=== PATIENT | female | born 1975 | race Caucasian/White ===

== ENCOUNTER 2016-10-15 11:14 | Emergency (ER) | payer OTHER ==
[~2016-10-15] VITALS: Ht 170.2 cm; Wt 72.6 kg
[~2016-10-15 11:14] MED LIST: ANTIVERT 25MG #1 PAC PO; TORADOL10 MG PO; ZOFRAN4 M1 PO
--- NOTE | 2016-10-15 12:28 | ED GI/GU/ABDOMINAL COMPLAINT ---
History of Present Illness General Chief Complaint: Low Back Pain/Injury Stated Complaint: LBP Source: patient Exam Limitations: no limitations Vital Signs & Intake/Output Vital Signs & Intake/Output Vital Signs Date Time Temp Pulse Resp B/P B/P Pulse O2 O2 Flow FiO2 Mean Ox Delivery Rate 10/15 1641 98.0 85 16 105/57 99 Room Air 10/15 1443 97.2 70 20 108/57 96 Room Air 10/15 1354 97.0 74 20 110/70 98 Room Air 10/15 1226 97.0 100 20 137/92 96 Room Air 10/15 1203 Room Air 10/15 1132 96.6 80 15 108/72 96 Room Air Room Air ED Intake and Output 10/16 0000 10/15 1200 Intake Total 1000 Output Total Balance 1000 Intake, IV 1000 Patient 160 lb Weight Weight Reported by Patient Measurement Method Allergies Coded Allergies: Iodinated Contrast Media - Oral and (Intermediate, [facility] 10/15/16) divalproex sodium (From DEPAKOTE) (Intermediate, [facility] 10/15/16) Reconcile Medications Ferrous Sulfate 325 MG (65 MG IRON) TABLET 1 TAB PO BID SUPPLEMENT (Reported) Hydrocodone/Acetaminophen ([place] 5-325 Tablet) 5 MG-325 MG TABLET 1-2 TAB PO Q6P PRN PAIN Ketorolac Tromethamine 10 MG TABLET 1 TAB PO Q6P PRN pain patient was treated with IV ketorolac in the emergency department Levothyroxine Sodium 25 MCG TABLET 0.5 TAB PO DAILY AC THYROID (Reported) Onabotulinumtoxina (Botox) 200 UNIT VIAL 1 INJ SC HEADACHE (Reported) Topiramate 25 MG TABLET 3 TAB PO DAILY UNKNOWN (Reported) Topiramate 25 MG TABLET UNKNOWN (Reported) Venlafaxine HCl (Venlafaxine HCl ER) 150 MG CAP.ER.24H 1 CAP PO DAILY MENTAL HEALTH (Reported) Triage Note: 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 Triage Nurses Notes Reviewed? yes ? n Is pt currently ? No HPI: Patient presents for evaluation of a severe constant aching left flank pain that began about 2 hours ago while at work, sitting at her desk. Patient states the pain is the most excruciating pain she has ever experienced. She denies any prior episodes. The onset was gradual and there is no change with movement. The patient likewise denies fever, cold symptoms or dysuria (but had trouble initiating urination in the emergency department). Past History Travel History Traveled to [place] past 21 day No Medical History Any Pertinent Medical History? 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 No Review of Systems Review of Systems Constitutional: Reports: no symptoms. EENTM: Reports: no symptoms. Respiratory: Reports: no symptoms. Cardiovascular: Reports: no symptoms. GI: Reports: no symptoms. Genitourinary: Reports: no symptoms. Musculoskeletal: Reports: see HPI. Skin: Reports: no symptoms. Neurological/Psychological: Reports: no symptoms. Hematologic/Endocrine: Reports: no symptoms. Immunologic/Allergic: Reports: no symptoms. All Other Systems: Reviewed and Negative Physical Exam Physical Exam Gastrointestinal: normal bowel sounds (SEE ), SEE BELOW Comments: Gen.: Well-nourished, well-developed, no acute respiratory distress. Moderate distress secondary to flank pain. Head: Normocephalic, atraumatic. Eyes: Normal inspection bilaterally Ears: Normal inspection bilaterally Nose: Normal inspection Throat/mouth : Moist mucosa Neck: Supple, full range of motion, no goiter Heart: Regular rate and rhythm, no murmurs rubs or gallops Lungs: Clear to auscultation bilaterally with normal air entry Chest: Nontender Back: Normal range of motion, tenderness over the left flank Abdomen: Soft, left mid abdominal tenderness with brief voluntary guarding but no rebound, nondistended, normal bowel sounds Extremities: Normal range of motion grossly, equal radial pulses, no cyanosis clubbing or edema Neurologic: Cranial nerves grossly intact, speech is clear Skin: warm and dry Psychiatric: Calm, cooperative, no apparent delusions or hallucinations Core Measures ACS in differential dx? No Severe Sepsis Present: No Septic Shock Present: No Progress Differential Diagnosis: RENAL COLIC Plan of Care: Orders Procedure Date/time Status LIPASE 10/15 1226 Complete COMPREHENSIVE METABOLIC PANEL 10/15 1226 Complete CBC WITHOUT DIFFERENTIAL 10/15 1226 Complete URINE 10/15 1134 Complete URINALYSIS 10/15 1134 Complete Laboratory Tests 10/15/16 1317: Anion Gap 12, Estimated GFR > 60, BUN/Creatinine Ratio 14.4, Glucose 115 H, Calcium 9.6, Total Bilirubin 0.6, AST 32, ALT 34, Alkaline Phosphatase 42, Total Protein 7.7, Albumin 4.6, Globulin 3.1, Albumin/Globulin Ratio 1.5, Lipase 84, CBC w Diff MAN DIFF ORDERED, RBC 5.13, MCV 78.5 L, MCH 26.0 L, RDW 14.7 H, MPV 8.0, Gran % 88.8 H, Lymphocytes % 8.6 L, Monocytes % 2.4, Eosinophils % 0.1, Basophils % 0.1, Absolute Granulocytes 13.0 H, Segmented Neutrophils 91 H , Band Neutrophils 1, Absolute Lymphocytes 1.3, Lymphocytes 5 L, Monocytes 3, Absolute Monocytes 0.4, Absolute Eosinophils 0, Absolute Basophils 0, Platelet Estimate ADEQUATE, Hypochromic-Microcytic 1+, Microcytic Cells 1+, PUBS MCHC 33.2, Fld Total RBCs Counted 100 10/15/16 1200: Urinalysis LIGHT H, Urine Color YEL, Urine Clarity HAZY H, Urine pH 6.0, Ur Specific [place] 1.025, Urine Protein 30 H, Urine Ketones NEG, Urine Nitrite NEG, Urine Bilirubin NEG, Urine Urobilinogen 0.2, Ur Leukocyte Esterase NEG, Ur Microscopic SEDIMENT EXAMINED, Urine RBC PACKD H, Urine WBC 1-3 H, Ur Epithelial Cells FEW, Urine Bacteria MOD H, Urine Mucus RARE, Urine Hemoglobin LARGE H, Urine Glucose NEG, Urine Test NEGATIVE Diagnostic Imaging: Discussed w/RAD: CT Scan. Radiology Impression: PATIENT: ALEXI GOOD PRESENT AGE: 41 PATIENT ACCOUNT NO: [id number] : 74 LOCATION: [facility] ORDERING PHYSICIAN: JEFF BRO MD SERVICE DATE: 10/15/16 EXAM TYPE: CAT - CT ABD & PELVIS W/O IV CONTRAS EXAMINATION: CT ABDOMEN AND PELVIS WITHOUT CONTRAST CLINICAL INFORMATION: Left renal colic. COMPARISON: None TECHNIQUE: Multidetector volumetric imaging was performed from the superior aspect of the liver through the pubic symphysis. Sagittal and coronal reformatted images were obtained on the technologist's workstation. DLP: 322.04 mGy-cm FINDINGS: LUNG BASES: The visualized lung bases are unremarkable. Bilateral breast implants are present. LIVER, GALLBLADDER, AND BILIARY TREE: The liver is normal in size, shape, and attenuation. No focal hepatic lesion or biliary ductal dilatation is present. The gallbladder is unremarkable with no evidence of radiopaque gallstones, gallbladder wall thickening, or obvious pericholecystic inflammatory changes. PANCREAS: Unremarkable. SPLEEN: Unremarkable. ADRENAL GLANDS: Unremarkable. KIDNEYS AND URETERS: There is an obstructing left proximal ureteral calculus present that measures 3 mm in size. Ureteral pelvocaliectasis with some stranding is noted above this level. No intrarenal calculi are seen on the left. No calculi are present on the right. The right kidney appears normal. No renal masses are seen on either side. BLADDER: Unremarkable. GASTROINTESTINAL TRACT: The small and large bowel are unremarkable. The appendix is unremarkable. ABDOMINAL WALL: No significant hernia is appreciated. LYMPH NODES: Normal. VASCULAR: Unremarkable. PELVIC VISCERA: Normal anteverted uterus is present. Some calcification is noted in the lower uterine segment. No abnormal adnexal masses seen. No free fluid is present. OSSEOUS STRUCTURES: Unremarkable. IMPRESSION: Obstructing 3 mm proximal left ureteral stone. DICTATED BY: KRISTA BREAUX MD DATE/TIME DICTATED:10/15/161346 FISHING ACCESSORIES MAKER:NITESH DATE/ TIME TRANSCRIBED:10/15/161346 CONFIDENTIAL, DO NOT COPY WITHOUT APPROPRIATE AUTHORIZATION. <Electronically signed in Other Vendor System> SIGNED BY: KRISTA BREAUX MD 10/15/16 1402 Initial ED EKG: none Departure Departure Disposition: HOME OR SELF CARE Condition: Stable Clinical Impression Primary Impression: Renal colic on left side Referrals: NICA ROSE,BART Singer (PCP/Family) Additional Instructions: Ketorolac and [place] as prescribed for pain. Tried to strain your urine to have the stone analyzed. Follow-up with Dr. Sutherland tomorrow for reevaluation. Notify your primary care doctor of this emergency department visit and treatment plan. Return if any concerns or sudden worsening. Please note that there might be incidental findings in your evaluation that are unrelated to the current emergency department visit. Please notify your primary care doctor about this emergency department visit in order to obtain and review all of the testing performed so that these incidental findings can be monitored as needed. If you had an x-ray performed, please understand that some fractures may not be seen on the initial set of x-rays. If your symptoms persist you might need a repeat set of x-rays to check for such a fracture. If you had a laceration evaluated, please understand that foreign bodies such as glass or wood may not be visible to the naked eye or on plain x-rays. If the wound becomes red, swollen, increasingly more painful or if there is any drainage from the wound, please have it reevaluated by a physician for the possibility of a retained foreign body. Thank you for choosing the [facility] for your care. It was a pleasure to serve you today. Jeff Bro M.D. [facility] Departure Forms: Customer Survey General Discharge Information Prescriptions: Current Visit Scripts Hydrocodone/Acetaminophen ([place] 5-325 Tablet) 1-2 TAB PO Q6P PRN PAIN #20 TAB Ketorolac Tromethamine 1 TAB PO Q6P PRN pain #16 TAB patient was treated with IV ketorolac in the emergency department
[2016-10-15 13:25] LABS: ABSOLUTE EOSINOPHIL COUNT 0 /CUMM (0.0-0.7); ABSOLUTE MONOCYTE COUNT 0.4 /CUMM (0.10-0.60)
[2016-10-15 13:28] LABS: ABSOLUTE BASOPHIL COUNT 0 /CUMM (0.0-0.2); ABSOLUTE LYMPH COUNT 1.3 /CUMM (1.2-3.4); BASOPHIL % 0.1 % (0.0-2.0); EOSINOPHIL % 0.1 % (0-5); GRANULOCYTE % 88.8 % (42.2-75.2); HEMATOCRIT 40.3 % (37-47); MEAN CORPUSCULAR HGB CONC 33.2 G/DL (33.0-37.0); MEAN CORPUSCULAR VOLUME 78.5 FL (81.0-99.0); PLATELET COUNT 231 /CUMM (130-400); RBC DISTRIBUTION WIDTH 14.7 % (11.5-14.5); RED BLOOD CELL CT 5.13 /CUMM (4.20-5.40); WHITE BLOOD CELL COUNT 14.6 /CUMM (4.8-10.8)
--- NOTE | 2016-10-15 14:08 | CT SCAN REPORT ---
EXAMINATION: CT ABDOMEN AND PELVIS WITHOUT CONTRAST CLINICAL INFORMATION: Left renal colic. COMPARISON: None TECHNIQUE: Multidetector volumetric imaging was performed from the superior aspect of the liver through the pubic symphysis. Sagittal and coronal reformatted images were obtained on the technologist's workstation. DLP: 322.04 mGy-cm FINDINGS: LUNG BASES: The visualized lung bases are unremarkable. Bilateral breast implants are present. LIVER, GALLBLADDER, AND BILIARY TREE: The liver is normal in size, shape, and attenuation. No focal hepatic lesion or biliary ductal dilatation is present. The gallbladder is unremarkable with no evidence of radiopaque gallstones, gallbladder wall thickening, or obvious pericholecystic inflammatory changes. PANCREAS: Unremarkable. SPLEEN: Unremarkable. ADRENAL GLANDS: Unremarkable. KIDNEYS AND URETERS: There is an obstructing left proximal ureteral calculus present that measures 3 mm in size. Ureteral pelvocaliectasis with some stranding is noted above this level. No intrarenal calculi are seen on the left. No calculi are present on the right. The right kidney appears normal. No renal masses are seen on either side. BLADDER: Unremarkable. GASTROINTESTINAL TRACT: The small and large bowel are unremarkable. The appendix is unremarkable. ABDOMINAL WALL: No significant hernia is appreciated. LYMPH NODES: Normal. VASCULAR: Unremarkable. PELVIC VISCERA: Normal anteverted uterus is present. Some calcification is noted in the lower uterine segment. No abnormal adnexal masses seen. No free fluid is present. OSSEOUS STRUCTURES: Unremarkable. IMPRESSION: Obstructing 3 mm proximal left ureteral stone.
[2016-10-15] MEDS ORDERED: TOPIRAMATE25 M2 PO ×2 (14:34→14:35)
[2016-10-15] MEDS ORDERED: LEVOTHYROXINE25 MCG PO (14:35)
[2016-10-15] MEDS ORDERED: FERROUS SULFAT325 M3 PO (14:35)
[2016-10-15] MEDS ORDERED: VENLAFAXINE HC150 MG PO (14:35)
[2016-10-15] MEDS ORDERED: BOTOX200 UNIT SC (14:37)
[2016-10-15] MEDS ORDERED: NORCO 5-325 TA1 EACH PO (16:29)
[2016-10-15] MEDS ORDERED: KETOROLAC TROME10 M1 PO (16:29)
[2016-10-15 16:41] VITALS: BP 105/57
== END 2016-10-15 16:42 ==
LOC: ERH 11:14
PROVIDERS: Emergency Medicine
DX: N23 Unspecified renal colic (principal)
CPT/HCPCS: 74176; 81001; 81025; 96374; 96375; J1885; J2405

== ENCOUNTER 2016-10-21 17:27 | Emergency (ER) | payer OTHER ==
[~2016-10-21] VITALS: Ht 170.2 cm; Wt 72.6 kg
[~2016-10-21 17:27] MED LIST changes: +BOTOX200 UNIT SC; +FERROUS SULFAT325 M3 PO; +KETOROLAC TROME10 M1 PO; +LEVOTHYROXINE25 MCG PO; +NORCO 5-325 TA1 EACH PO; +TOPIRAMATE25 M2 PO; +VENLAFAXINE HC150 MG PO
--- NOTE | 2016-10-21 18:49 | ED GI/GU/ABDOMINAL COMPLAINT ---
History of Present Illness General Chief Complaint: Female Urogenital Problems Stated Complaint: VAGINAL PAIN,NAUSEA POST PASSING KIDNEY STONE Source: patient, family, old records Exam Limitations: no limitations Vital Signs & Intake/Output Vital Signs & Intake/Output Vital Signs Date Time Temp Pulse Resp B/P B/P Pulse O2 O2 Flow FiO2 Mean Ox Delivery Rate 10/21 2145 98.1 94 18 110/80 99 Room Air 10/21 1944 98.4 75 18 125/76 96 Room Air 10/21 1748 96.7 81 16 126/86 98 Room Air Allergies Coded Allergies: Iodinated Contrast- Oral and IV Dye (IODINATED CONTRAST MEDIA - ORAL AND) ( Intermediate, [facility] 10/15/16) divalproex sodium (From DEPAKOTE) ([facility], [facility] 10/15/16) Reconcile Medications Ferrous Sulfate 325 MG (65 MG IRON) TABLET 1 TAB PO BID SUPPLEMENT (Reported) Hydrocodone/Acetaminophen ([place] 5-325 Tablet) 5 MG-325 MG TABLET 1-2 TAB PO Q6P PRN PAIN Ketorolac Tromethamine 10 MG TABLET 1 TAB PO Q6P PRN pain patient was treated with IV ketorolac in the emergency department Ketorolac Tromethamine 10 MG TABLET 1 TAB PO Q6P PRN PAIN TAKE WITH FOOD Levothyroxine Sodium 25 MCG TABLET 0.5 TAB PO DAILY AC THYROID (Reported) Onabotulinumtoxina (Botox) 200 UNIT VIAL 1 INJ SC Q3M MIGRAINES (Reported) Ondansetron (Zofran Odt) 4 MG TAB.RAPDIS 1 TAB PO Q6 PRN NAUSEA Peg 3350/Na Sulf,Bicarb,Cl/KCl (Golytely Packet) 227.1-21.5 POWD.PACK 8 OZ PO [id number] PRN CONSTIPATION Promethazine HCl 25 MG TABLET 1 TAB PO Q6P PRN NAUSEA Topiramate 25 MG TABLET 3 TAB PO QAM MIGRAINES (Reported) Topiramate 25 MG TABLET 2 TAB PO DAILY MIGRAINES (Reported) Venlafaxine HCl (Venlafaxine HCl ER) 150 MG CAP.ER.24H 1 CAP PO DAILY MIGRAINES (Reported) Triage Note: PT STATES SHE WAS SEEN HERE WEDNESDAY FOR A KIDNEY STONE. PT STATES SHE PASSED IT WEDNESDAY MORNING. PT STATES WEDNESDAY EVENING SHE BEGAN TO HAVE NAUSEA AND SHE BEGAN TO HAVE PELVIC PAIN ON WEDNESDAY EVENING Triage Nurses Notes Reviewed? yes ? N Is pt currently ? No Onset: Abrupt Duration: day(s): (1) Timing: multiple episodes today Quality/Severity: moderate, sharpness, severe Severity Numbers: 10 Location: right lower quadrant, urethral Activities at Onset: after passing renal stone Associated Symptoms: nausea/vomiting HPI: 41 year old female presents with pain in her RLQ and in the urethra after passing kidney stone. She was seen here a few days previously for left ureteral stone and states that she then passed the stone. Since that time she has been having ureteral pain but then today developed RLQ pain. History of endometriosis and previous ovarian cyst rupture. Denies fever or chills. Positive nausea. Pain feels similar to that with ruptured ovarian cyst. Past History Travel History Traveled to [place] past 21 day No Medical History Any Pertinent Medical History? 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 No Review of Systems Review of Systems Constitutional: Denies: chills, fever. EENTM: Reports: no symptoms. Respiratory: Reports: no symptoms. Cardiovascular: Reports: no symptoms. GI: Reports: abdominal pain, nausea. Denies: diarrhea, vomiting. Genitourinary: Denies: discharge, dysuria, frequency. Musculoskeletal: Reports: no symptoms. Skin: Reports: no symptoms. Neurological/Psychological: Reports: no symptoms. Hematologic/Endocrine: Reports: polyuria. Denies: bruising, bleeding, polydipsia. Immunologic/Allergic: Denies: splenectomy. All Other Systems: Reviewed and Negative Physical Exam Physical Exam General Appearance: well developed/nourished, alert, awake, anxious, mild distress Head: atraumatic, normal appearance Eyes: Bilateral: normal appearance, PERRL, EOMI. Ears, Nose, Throat, Mouth: hearing grossly normal, moist mucous membrane Neck: normal inspection, supple, full range of motion Respiratory: normal breath sounds, chest non-tender, no respiratory distress Cardiovascular: regular rate/rhythm Peripheral Pulses: 2+ radial (R), 2+ radial (L) Gastrointestinal: normal bowel sounds, soft, tenderness (RLQ, OVER RIGHT INGUINAL CANAL) Extremities: normal range of motion Neurologic/Psych: no motor/sensory deficits, awake, alert, oriented x 3 Core Measures ACS in differential dx? No Severe Sepsis Present: No Septic Shock Present: No Progress Differential Diagnosis: appendicitis, hernia, ovarian cyst, ovarian torsion, UTI /pyelo, ENDOMETRIOSIS Plan of Care: Orders Procedure Date/time Status Add-on Test (ER Only) 10/22 1907 Active COMPREHENSIVE METABOLIC PANEL 10/21 1848 Complete CBC WITHOUT DIFFERENTIAL 10/21 1848 Complete URINE 10/21 1800 Complete URINALYSIS 10/21 174 Complete Current Medications Sig/Vandana Start time Last Medication Dose Stop Time Status Admin Hydromorphone HCl 1 MG ONCE ONE 10/21 2144 UNVr (Dilaudid) 10/21 2145 Laboratory Tests 10/21/161900: Anion Gap 12, Estimated GFR > 60, BUN/Creatinine Ratio 15.0, Glucose 96, Calcium 9.5, Total Bilirubin 0.2, AST 20, ALT 41, Alkaline Phosphatase 47, Total Protein 7.4, Albumin 4.4, Globulin 3.0, Albumin/Globulin Ratio 1.5, CBC w Diff NO MAN DIFF REQ, RBC 4.85, MCV 78.3 L, MCH 26.1 L, RDW 14.4, MPV 8.0, Gran % 70.0, Lymphocytes % 22.3, Monocytes % 5.3, Eosinophils % 2.1, Basophils % 0.3, Absolute Granulocytes 5.0, Absolute Lymphocytes 1.6, Absolute Monocytes 0.4, Absolute Eosinophils 0.1, Absolute Basophils 0, PUBS MCHC 33.3 10/21/16 1800: Urine Color YEL, Urine Clarity CLEAR, Urine pH 7.0, Ur Specific [place] 1.015, Urine Protein NEG, Urine Ketones NEG, Urine Nitrite NEG, Urine Bilirubin NEG, Urine Urobilinogen 0.2, Ur Leukocyte Esterase NEG, Ur Microscopic EXAM NOT REQUIRED, Urine Hemoglobin NEG, Urine Glucose NEG, Urine Test NEGATIVE TORADOL, ZOFRAN, FLUIDS, LABS ORDERED. NO RELIEF, IV MORPHINE ORDERED. U/S PENDING. IV DILAUDID ORDERED. U/S CONSISTENT WITH FIBROID AND LEFT OVARIAN CYST. WILL FOLLOW UP WITH OBGYN AND WITH SURGERY FOLLOW UP FOR POSSIBLITY O FFEMORAL HERNIA. (ARIAN ROSE,CRISTI) Diagnostic Imaging: Viewed by Me: Ultrasound. Discussed w/RAD: Ultrasound. Initial ED EKG: none Departure Departure Disposition: HOME OR SELF CARE Condition: Stable Clinical Impression Primary Impression: Ovarian cyst Secondary Impressions: Fibroid Referrals: NICA ROSE,BART Singer (PCP/Family) SABAS ROSE,DARIEN Jacques Additional Instructions: take motrin as needed for pain. take percocet for breakthrough pain and zofran for nausea. 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 Departure Forms: Customer Survey General Discharge Information Prescriptions: Current Visit Scripts Ondansetron (Zofran Odt) 1 TAB PO Q6 PRN NAUSEA #20 TAB Ketorolac Tromethamine 1 TAB PO Q6P PRN PAIN #20 TAB TAKE WITH FOOD
[2016-10-21 19:30] LABS: ABSOLUTE BASOPHIL COUNT 0 /CUMM (0.0-0.2); ABSOLUTE EOSINOPHIL COUNT 0.1 /CUMM (0.0-0.7); ABSOLUTE LYMPH COUNT 1.6 /CUMM (1.2-3.4); ABSOLUTE MONOCYTE COUNT 0.4 /CUMM (0.10-0.60); BASOPHIL % 0.3 % (0.0-2.0); EOSINOPHIL % 2.1 % (0-5); MEAN CORPUSCULAR HGB 26.1 PG (27.0-31.0); MEAN CORPUSCULAR HGB CONC 33.3 G/DL (33.0-37.0); MEAN CORPUSCULAR VOLUME 78.3 FL (81.0-99.0); PLATELET COUNT 266 /CUMM (130-400); RBC DISTRIBUTION WIDTH 14.4 % (11.5-14.5); RED BLOOD CELL CT 4.85 /CUMM (4.20-5.40)
[2016-10-21 19:39] LABS: WHITE BLOOD CELL COUNT 7.1 /CUMM (4.8-10.8)
--- NOTE | 2016-10-21 21:19 | ULTRASOUND REPORT ---
EXAM: Pelvic Ultrasound CLINICAL INDICATION: Right lower quadrant pain. Nausea. History of endometriosis with ruptured cyst. COMPARISON: CT abdomen pelvis 10/15/2016 and pelvic ultrasound 04/08/2011 TECHNIQUE: The pelvis was evaluated using transabdominal and transvaginal imaging. Color and spectral Doppler imaging was obtained of both ovaries. FINDINGS: The uterus measures 7.9 x 3.3 x 4.7 cm in longitudinal by AP by transverse dimension. The endometrial stripe measures 0.6 cm. Suspected 1.6 cm fundal fibroid. The cervix measures 3.5 cm in length. The left ovary measures approximately 4.0 x 2.5 x 3.2 cm. Within the left ovary is an approximately 1.8 x 1.6 x 1.7 cm complex hypoechoic structure containing internal echogenicities. The right ovary measures approximately 2.3 x 2.0 x 1.4 cm and is normal. Spectral analysis reveals normal arterial and venous waveforms in the bilateral ovaries. There are no abnormal adnexal masses. There is no free fluid in the pelvis. IMPRESSION: 1. Suspected 1.6 cm fundal fibroid. Endometrial stripe measures 6 mm in thickness. 2. 1.8 cm complex hypoechoic structure within the left ovary. Findings are nonspecific but most suggestive of a hemorrhagic cyst. Short-term interval follow-up is recommended to ensure resolution.
[2016-10-21] MEDS ORDERED: ZOFRAN ODT4 M1 PO (21:48)
[2016-10-21] MEDS ORDERED: PERCOCET 5-3251 EACH PO (21:48)
[2016-10-21] MEDS ORDERED: KETOROLAC TROME10 M1 PO (22:49)
[2016-10-21 22:53] VITALS: BP 110/82
== END 2016-10-21 22:53 ==
LOC: ERH 17:27
PROVIDERS: Emergency Medicine
DX: N83.202 Unspecified ovarian cyst, left side (principal); D21.9 Benign neoplasm of connective and other soft tissue, unspecified
CPT/HCPCS: 81003; 81025; 96361; 96374; 96375; J1885; J2405; J3101

== ENCOUNTER 2016-10-23 15:30 | Emergency (ER) | payer OTHER ==
[~2016-10-23] VITALS: Ht 170.2 cm; Wt 72.6 kg
[~2016-10-23 15:30] MED LIST changes: +PERCOCET 5-3251 EACH PO; +ZOFRAN ODT4 M1 PO
--- NOTE | 2016-10-23 16:57 | ED GI/GU/ABDOMINAL COMPLAINT ---
History of Present Illness General Chief Complaint: General Adult Stated Complaint: PT WAS HERE BEFORE FOR NAUSEA AND ADBDONAIL PAIN Source: patient, old records Exam Limitations: no limitations Vital Signs & Intake/Output Vital Signs & Intake/Output Vital Signs Date Time Temp Pulse Resp B/P B/P Pulse O2 O2 Flow FiO2 Mean Ox Delivery Rate 10/23 1826 98.9 88 18 123/78 98 Room Air 10/23 1534 98.8 103 18 127/85 98 Room Air Allergies Coded Allergies: Iodinated Contrast Media - Oral and (Intermediate, HIVES 10/15/16) divalproex sodium (From DEPAKOTE) (Intermediate, HIVES 10/15/16) Reconcile Medications Ferrous Sulfate 325 MG (65 MG IRON) TABLET 1 TAB PO BID SUPPLEMENT (Reported) Hydrocodone/Acetaminophen ([place] 5-325 Tablet) 5 MG-325 MG TABLET 1-2 TAB PO Q6P PRN PAIN Ketorolac Tromethamine 10 MG TABLET 1 TAB PO Q6P PRN pain patient was treated with IV ketorolac in the emergency department Ketorolac Tromethamine 10 MG TABLET 1 TAB PO Q6P PRN PAIN TAKE WITH FOOD Levothyroxine Sodium 25 MCG TABLET 0.5 TAB PO DAILY AC THYROID (Reported) Onabotulinumtoxina (Botox) 200 UNIT VIAL 1 INJ SC Q3M MIGRAINES (Reported) Ondansetron (Zofran Odt) 4 MG TAB.RAPDIS 1 TAB PO Q6 PRN NAUSEA Peg 3350/Na Sulf,Bicarb,Cl/KCl (Golytely Packet) 227.1-21.5 POWD.PACK 8 OZ PO [id number] PRN CONSTIPATION Promethazine HCl 25 MG TABLET 1 TAB PO Q6P PRN NAUSEA Topiramate 25 MG TABLET 3 TAB PO QAM MIGRAINES (Reported) Topiramate 25 MG TABLET 2 TAB PO DAILY MIGRAINES (Reported) Venlafaxine HCl (Venlafaxine HCl ER) 150 MG CAP.ER.24H 1 CAP PO DAILY MIGRAINES (Reported) Triage Note: 41 YO FEMALE TO ER C/O RLQ PAIN. WAS SEEN A FEW DAYS AGO AND THEY DID AN ULTRASOUND AND WAS TOLD SHE POSSIBLY HAD A HERNIA. STATES SHE WENT TO THE BUTANE COMPRESSOR OPERATOR TODAY WHO SUGESTED SHE CAME BACK TO THE ER. +N/V. STATES SHE HASNT HAD A BM IN 3 DAYS. STATES PAIN 10/10 AT THIS TIME. Triage Nurses Notes Reviewed? yes ? n Is pt currently ? No HPI: 41-year-old female history of endometriosis ovarian cysT kidney stones presents to ER complaining of persistent right lower quadrant right groin pain. The patient was seen here 2 days ago for the same which time she had an ultrasound that showed a left ovarian cyst. She's been taking Percocet and Vicodin order all without improvement at home. She states she still has nausea vomiting. She with her dust box worker today referred her back to the ER and she has not had a bowel movement in 3 days. Patient denies fever chills urinary symptoms no vaginal bleeding or discharge. The pain is localized to her right groin is worse with movement of her leg (ASAD ROCK) Past History Travel History Traveled to [place] past 21 day No Medical History Any Pertinent Medical History? 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 No (ASAD ROCK) Review of Systems Review of Systems Constitutional: Reports: see HPI. All Other Systems: Reviewed and Negative Comments Review of systems: See HPI, All other systems negative. Constitutional, no chills no fever, no malais HEENT: no sore throat no congestion, no ear pain Cardiovascular: No chest pain , no palpitation , no orthopnea Skin: no rashes, no change in skin Respiratory: No dyspnea no cough no sputum GI: No nausea no vomiting, no diarrhea, constipation : No dysuria No hematuria, Muscle skeletal: No joint pain, no joint swelling, no back pain, no neck pain, Neurologic: no headache Psych: No stress Heme/endocrine: No bruising no bleeding Immunology: No lymphadenopathy (ASAD ROCK) Physical Exam Physical Exam General Appearance: well developed/nourished, no apparent distress, alert, awake , comfortable Gastrointestinal: soft Comments: Well-developed well-nourished person in no acute distress HEENT: Normal EENT exam; PERRL, EOMI, HEAD is atraumatic. moist mucous membranes. Neck: Supple, normal range of motion Back: Nontender, no CVA tenderness. Full range of motion Cardiovascular: Regular rate and rhythms no murmurs rubs Respiratory: No respiratory distress. Patient speaking in full complete sentences. Breath sounds clear to auscultation bilaterally: NO W/R/R Abdomen: Soft, tender over the right inguinal ligament affable mass no overlying skin changes nondistended, no appreciable organomegaly. Normal bowel sounds. No rebound/guarding, No appreciable enlargement of the abdominal aorta, No ascites. , No hernia Extremity: No edema, full range of motion of extremities, normal and equal pulses bilaterally, 5 out of 5 strength noted to bilateral upper and lower extremities Neuro: Alert oriented x3, motor sensory normal, There were no obvious focal neurologic abnormalities. Skin: No appreciable rash on exposed skin, skin is warm and dry. Psych: Mood and affect is normal, memory and judgment is normal. Core Measures ACS in differential dx? No Severe Sepsis Present: No Septic Shock Present: No (KOBE ARCE,ASAD) Progress Differential Diagnosis: appendicitis, biliary colic, hernia, ischemic bowel, inflamm bowel dis, perforated viscous, ENDOMETRIOSIS,CONSTIPATION Plan of Care: Orders Procedure Date/time Status URINALYSIS 10/23 1705 Active COMPREHENSIVE METABOLIC PANEL 10/23 1607 Complete CBC WITHOUT DIFFERENTIAL 10/23 1607 Complete Laboratory Tests 10/23/16 1712: Anion Gap 13, Estimated GFR > 60, BUN/Creatinine Ratio 17.5, Glucose 77, Calcium 9.4, Total Bilirubin 0.3, AST 20, ALT 36, Alkaline Phosphatase 49, Total Protein 7.6, Albumin 4.4, Globulin 3.2, Albumin/Globulin Ratio 1.4, CBC w Diff NO MAN DIFF REQ, RBC 4.84, MCV 78.2 L, MCH 25.7 L, RDW 14.1, MPV 8.0, Gran % 68.4, Lymphocytes % 24.3, Monocytes % 5.5, Eosinophils % 1.0, Basophils % 0.8, Absolute Granulocytes 5.8, Absolute Lymphocytes 2.1, Absolute Monocytes 0.5, Absolute Eosinophils 0.1, Absolute Basophils 0.1, PUBS MCHC 32.9 L Old records including the patient's previous ultrasound CAT scan were reviewed labs ordered. Discussed the patient will treat her pain 5 pain medication and fluids. Patient states that were seen Dilaudid Toradol has not helped which time I discussed with her do not believe she requires further imaging at this time however patient is persistent and would like imaging to rule out any other pathology case was discussed with Dr. Altman who agrees with the plan 10/23/2016 6:06:36 PM patient noted to be sleeping at this time has had no episodes of dry heaving or vomiting here in the department pending labs and CAT scan On repeat evaluation patient is again resting in no apparent distress she reports morphine itself with pain I discussed with the patient at length all of their results. I had an extensive conversation regarding need for close follow up with their primary care physician this week as well as return precautions. I answered all of their questions, they feel comfortable with the plan and follow-up care. I discussed with the patient/family the medications that they will receive. I gave them signs and symptoms that could indicate an adverse reaction. I have advised them to limit their activities until they can see how they respond to the medication. US 10/21: IMPRESSION: 1. Suspected 1.6 cm fundal fibroid. Endometrial stripe measures 6 mm in thickness. 2. 1.8 cm complex hypoechoic structure within the left ovary. Findings are nonspecific but most suggestive of a hemorrhagic cyst. Short-term interval follow-up is recommended to ensure resolution. (KOBE ARCE,ASAD) Diagnostic Imaging: Viewed by Me: CT Scan. Discussed w/RAD: CT Scan. Radiology Impression: PATIENT: ALEXI GOOD PRESENT AGE: 41 PATIENT ACCOUNT NO: [id number] : 74 LOCATION: [facility] ORDERING PHYSICIAN: ASAD ARCE SERVICE DATE: 10/23/16 EXAM TYPE: CAT - CT ABD & PELVIS W/O IV CONTRAS EXAMINATION: CT ABDOMEN AND PELVIS WITHOUT CONTRAST CLINICAL INFORMATION: Right lower quadrant abdominal pain. Here for the same, kidney stone, left ovarian cyst. Evaluate for hernia, appendicitis. COMPARISON: Pelvic ultrasound 10/21/2016. CT of the abdomen and pelvis 10/15/2016. TECHNIQUE : Multidetector volumetric imaging was performed from the superior aspect of the liver through the pubic symphysis. Sagittal and coronal reformatted images were obtained on the technologist's workstation. DLP: 323.67 mGy-cm FINDINGS: LUNG BASES: There is mild dependent atelectasis at both lung bases. LIVER, GALLBLADDER, AND BILIARY TREE: The liver is normal in size, shape, and attenuation. No focal hepatic lesion or biliary ductal dilatation is present. The gallbladder is unremarkable with no evidence of radiopaque gallstones, gallbladder wall thickening, or obvious pericholecystic inflammatory changes. PANCREAS: Unremarkable. SPLEEN: Unremarkable. ADRENAL GLANDS: Unremarkable. KIDNEYS AND URETERS: The left ureteral calculus is no longer evident. The kidneys and ureters are otherwise unremarkable. BLADDER: Decompressed. GASTROINTESTINAL TRACT: The small and large bowel are unremarkable. The appendix is unremarkable. ABDOMINAL WALL: No significant hernia is appreciated. LYMPH NODES: Normal. VASCULAR: Unremarkable. PELVIC VISCERA: Unremarkable. The pelvic viscera are better evaluated on the prior ultrasound. OSSEOUS STRUCTURES: There are stable mild degenerative changes of both sacroiliac joints. IMPRESSION: 1. Left ureteral calculus has resolved. 2. Otherwise, no acute abnormalities in the abdomen or pelvis. Specifically, no evidence of appendicitis. DICTATED BY: GEORGI ALAN MD DATE/TIME DICTATED:10/23/161745 DELINQUENCY COUNSELOR:NITESH DATE/TIME TRANSCRIBED:10/23/161745 CONFIDENTIAL, DO NOT COPY WITHOUT APPROPRIATE AUTHORIZATION. <Electronically signed in Other Vendor System> SIGNED BY: GEORGI ALAN MD 10/23/161804 Initial ED EKG: none (ASAD ROCK) Departure Departure Time of Disposition: 1824 Disposition: HOME OR SELF CARE Condition: Stable Clinical Impression Primary Impression: Abdominal pain Secondary Impressions: Groin pain Referrals: NICA ROSE,BART Singer (PCP/Family) Additional Instructions: GoLYTELY as directed Phenergan for nausea. Follow-up with your primary care physician and dust box worker on Wednesday and return to ER with any concerns. Departure Forms: Customer Survey General Discharge Information Prescriptions: Current Visit Scripts Peg 3350/Na Sulf,Bicarb,Cl/KCl (Golytely Packet) 8 OZ PO [id number] PRN CONSTIPATION #4 L Promethazine HCl 1 TAB PO Q6P PRN NAUSEA #30 TAB (ASAD ROCK) PA/BUILDING CONSTRUCTION CONTRACTOR Co-Sign Statement Statement: ED Attending supervision documentation- [] I saw and evaluated the patient. I have also reviewed all the pertinent lab results and diagnostic results. I agree with the findings and the plan of care as documented in the PA's/BUILDING CONSTRUCTION CONTRACTOR's documentation. [X] I have reviewed the ED Record and agree with the PA's/BUILDING CONSTRUCTION CONTRACTOR's documentation. [] Additions or exceptions (if any) to the PAs/BUILDING CONSTRUCTION CONTRACTOR's note and plan are summarized below: [] (ARIAN ROSE,CRISTI)
[2016-10-23 17:32] LABS: ABSOLUTE BASOPHIL COUNT 0.1 /CUMM (0.0-0.2); ABSOLUTE EOSINOPHIL COUNT 0.1 /CUMM (0.0-0.7); ABSOLUTE GRANULOCYTE CT 5.8 /CUMM (1.4-6.5); ABSOLUTE LYMPH COUNT 2.1 /CUMM (1.2-3.4); ABSOLUTE MONOCYTE COUNT 0.5 /CUMM (0.10-0.60); BASOPHIL % 0.8 % (0.0-2.0); GRANULOCYTE % 68.4 % (42.2-75.2); HEMATOCRIT 37.8 % (37-47); MEAN CORPUSCULAR HGB 25.7 PG (27.0-31.0); MEAN CORPUSCULAR HGB CONC 32.9 G/DL (33.0-37.0); MEAN CORPUSCULAR VOLUME 78.2 FL (81.0-99.0); PLATELET COUNT 256 /CUMM (130-400); RBC DISTRIBUTION WIDTH 14.1 % (11.5-14.5); RED BLOOD CELL CT 4.84 /CUMM (4.20-5.40); WHITE BLOOD CELL COUNT 8.4 /CUMM (4.8-10.8)
--- NOTE | 2016-10-23 18:05 | CT SCAN REPORT ---
EXAMINATION: CT ABDOMEN AND PELVIS WITHOUT CONTRAST CLINICAL INFORMATION: Right lower quadrant abdominal pain. Here for the same, kidney stone, left ovarian cyst. Evaluate for hernia, appendicitis. COMPARISON: Pelvic ultrasound 10/21/2016. CT of the abdomen and pelvis 10/15/2016. TECHNIQUE: Multidetector volumetric imaging was performed from the superior aspect of the liver through the pubic symphysis. Sagittal and coronal reformatted images were obtained on the technologist's workstation. DLP: 323.67 mGy-cm FINDINGS: LUNG BASES: There is mild dependent atelectasis at both lung bases. LIVER, GALLBLADDER, AND BILIARY TREE: The liver is normal in size, shape, and attenuation. No focal hepatic lesion or biliary ductal dilatation is present. The gallbladder is unremarkable with no evidence of radiopaque gallstones, gallbladder wall thickening, or obvious pericholecystic inflammatory changes. PANCREAS: Unremarkable. SPLEEN: Unremarkable. ADRENAL GLANDS: Unremarkable. KIDNEYS AND URETERS: The left ureteral calculus is no longer evident. The kidneys and ureters are otherwise unremarkable. BLADDER: Decompressed. GASTROINTESTINAL TRACT: The small and large bowel are unremarkable. The appendix is unremarkable. ABDOMINAL WALL: No significant hernia is appreciated. LYMPH NODES: Normal. VASCULAR: Unremarkable. PELVIC VISCERA: Unremarkable. The pelvic viscera are better evaluated on the prior ultrasound. OSSEOUS STRUCTURES: There are stable mild degenerative changes of both sacroiliac joints. IMPRESSION: 1. Left ureteral calculus has resolved. 2. Otherwise, no acute abnormalities in the abdomen or pelvis. Specifically, no evidence of appendicitis.
[2016-10-23 18:26] VITALS: BP 123/78
[2016-10-23] MEDS ORDERED: GOLYTELY PACKE1 EACH PO (18:26)
[2016-10-23] MEDS ORDERED: PROMETHAZINE HC25 M3 PO (18:26)
== END 2016-10-23 18:47 ==
LOC: ERH 15:30
PROVIDERS: Emergency Medicine
DX: R10.31 Right lower quadrant pain (principal); E03.9 Hypothyroidism, unspecified
CPT/HCPCS: 74176; 96361; 96374; 96375; J0131; J2405